=== PATIENT | male | born 1960 | race Caucasian/White ===

== ENCOUNTER → 2018-10-03 10:48 | Outpatient (CLI) | payer MEDICARE, SELFPAY ==
[2017-07-07 08:23] VITALS: BMI 70.4
[2018-10-03 12:48] LABS: Hemoglobin A1c 7.5 % (4.2-6.3)
[2018-10-03 14:30] LABS: Anion Gap 8 (5-15); BUN 12 mg/dL (7-18); BUN/Creat Ratio 16.4 RATIO (10-20); Calcium,Total 8.6 mg/dL (8.5-10.1); Chloride 103 mmol/L (98-107); Creatinine, Serum 0.73 mg/dL (0.70-1.30); EST Glomerular Filtration Rate 118 mL/min (>60); Est Glom Filt Rate - Afr Amer 142 mL/min (>60); Glucose 113 mg/dL (74-106); Potassium 4.2 mmol/L (3.5-5.1); Sodium Level 140 mmol/L (136-145)
== END ==
PROVIDERS: Family Provider Family Medicine; PCP Family Medicine; Visit Provider Family Medicine
DX: I10 Essential (primary) hypertension (principal); E11.9 Type 2 diabetes mellitus without complications
CPT/HCPCS: 36415; 80048; 83036

== ENCOUNTER → 2019-04-03 10:50 | Outpatient (CLI) | payer MEDICARE, SELFPAY ==
[2017-07-07 08:23] VITALS: BMI 70.4
[2019-04-03 13:16] LABS: AST(SGOT) 23 U/L (15-37); Alanine Aminotransfer ALT/SGPT 28 U/L (16-61); Albumin, Serum 3.8 g/dL (3.2-5.0); Alkaline Phosphatase 50 U/L (45-117); Anion Gap 7 (5-15); BUN 16 mg/dL (7-18); BUN/Creat Ratio 16.6 RATIO (10-20); Bilirubin, Direct 0.11 mg/dL (0.00-0.30); Calcium,Total 9.2 mg/dL (8.5-10.1); Chloride 103 mmol/L (98-107); Cholesterol 112 mg/dL (200); Creatinine, Serum 0.96 mg/dL (0.70-1.30); EST Glomerular Filtration Rate 86 mL/min (>60); Est Glom Filt Rate - Afr Amer 103 mL/min (>60); Globulin 3.6 g/dL (2.2-4.2); Glucose 155 mg/dL (74-106); High Density Lipoprotein 46 mg/dL; Potassium 4.6 mmol/L (3.5-5.1); Protein, Total 7.4 g/dL (6.4-8.2); Sodium Level 139 mmol/L (136-145); Triglycerides 128 mg/dL; Very Low Density Lipoprotein 26 mg/dL (5-40)
== END ==
PROVIDERS: Family Provider Family Medicine; PCP Family Medicine; Referring Provider Family Medicine; Visit Provider Family Medicine
DX: I10 Essential (primary) hypertension (principal); E11.9 Type 2 diabetes mellitus without complications
CPT/HCPCS: 36415; 80048; 80061; 80076

== ENCOUNTER → 2019-10-07 10:40 | Outpatient (CLI) | payer MEDICARE, SELFPAY ==
[2017-07-07 08:23] VITALS: BMI 70.4
[2019-10-07 13:12] LABS: Anion Gap 3 (5-15); BUN 12 mg/dL (7-18); BUN/Creat Ratio 12.3 RATIO (10-20); Calcium,Total 8.8 mg/dL (8.5-10.1); Chloride 105 mmol/L (98-107); Creatinine, Serum 0.98 mg/dL (0.70-1.30); EST Glomerular Filtration Rate 84 mL/min (>60); Est Glom Filt Rate - Afr Amer 101 mL/min (>60); Glucose 188 mg/dL (74-106); Potassium 4.9 mmol/L (3.5-5.1); Sodium Level 140 mmol/L (136-145)
== END ==
PROVIDERS: Family Provider Family Medicine; PCP Family Medicine; Visit Provider Family Medicine
DX: I10 Essential (primary) hypertension (principal)
CPT/HCPCS: 36415; 80048

== ENCOUNTER → 2020-04-06 10:35 | Outpatient (CLI) | payer MEDICARE, SELFPAY ==
[2017-07-07 08:23] VITALS: BMI 70.4
[2020-04-06 13:49] LABS: Anion Gap 6 (5-15); BUN 18 mg/dL (7-18); BUN/Creat Ratio 21.3 RATIO (10-20); Calcium,Total 8.7 mg/dL (8.5-10.1); Chloride 101 mmol/L (98-107); Creatinine, Serum 0.84 mg/dL (0.70-1.30); EST Glomerular Filtration Rate 99 mL/min (>60); Est Glom Filt Rate - Afr Amer 120 mL/min (>60); Glucose 195 mg/dL (74-106); Potassium 4.7 mmol/L (3.5-5.1); Sodium Level 137 mmol/L (136-145)
== END ==
PROVIDERS: PCP Family Medicine; Visit Provider Family Medicine
DX: I10 Essential (primary) hypertension (principal)
CPT/HCPCS: 36415; 80048

== ENCOUNTER → 2020-10-30 14:32 | Outpatient (CLI) | payer MEDICARE, SELFPAY ==
[2017-07-07 08:23] VITALS: BMI 70.4
[2020-10-30 17:39] LABS: Absolute Lymphocyte Count 1.97 X10^3/uL (0.83-4.51); Absolute Neutrophil Count 3.7 X10^3/uL (2.0-7.7); Basophil# 0.03 X10^3/uL; Basophil% 0.5 % (0-1); Eosinophil# 0.08 X10^3/uL; Eosinophils% 1.3 % (0-5); Hematocrit 50.6 % (40-54); Hemoglobin 15.9 g/dL (13.0-16.5); Lymphocyte # 1.97 X10^3/ul (4.0); Lymphocyte % 31.3 % (19-41); Mean Corp Hgb Conc 31.4 g/dL (32-36); Mean Corpuscular Hgb 28.9 pg (27.0-32.0); Mean Corpuscular Volume 91.8 fL (80-94); Mean Platelet Vol. 10.7 fl (6.2-12.0); Monocyte% 7.9 % (0-10); NRBC Flagged by Analyzer 0 % (0-5); Neutrophil % 58.7 % (47-70); Platelet Count 149 K/mm3 (150-450); RBC Distribution Width CV 12.8 % (11.6-14.6); RBC Distribution Width SD 43.5 fl (35.1-43.9); Red Blood Count 5.51 M/mm3 (4.6-6.2); White Blood Count 6.3 K/mm3 (4.4-11.0)
[2020-10-30 17:57] LABS: ALB/GLOB Ratio 0.9 RATIO (0.9-2.4); AST(SGOT) 26 U/L (15-37); Alanine Aminotransfer ALT/SGPT 27 U/L (16-61); Albumin, Serum 3.8 g/dL (3.2-5.0); Alkaline Phosphatase 44 U/L (45-117); Anion Gap 7 (5-15); BUN 13 mg/dL (7-18); BUN/Creat Ratio 13.3 RATIO (10-20); Calcium,Total 9.8 mg/dL (8.5-10.1); Chloride 101 mmol/L (98-107); Cholesterol 131 mg/dL (200); Creatinine, Serum 0.98 mg/dL (0.70-1.30); EST Glomerular Filtration Rate 84 mL/min (>60); Est Glom Filt Rate - Afr Amer 101 mL/min (>60); Globulin 4.4 g/dL (2.2-4.2); Glucose 173 mg/dL (74-106); High Density Lipoprotein 47 mg/dL; PSA,Total - Annual Screen 0.55 ng/mL (0.00-4.00); Potassium 4.7 mmol/L (3.5-5.1); Protein, Total 8.2 g/dL (6.4-8.2); Sodium Level 136 mmol/L (136-145); Triglycerides 209 mg/dL; Very Low Density Lipoprotein 42 mg/dL (5-40)
[2020-10-30 18:14] LABS: Hemoglobin A1c 9.1 % (3.8-5.6)
== END ==
PROVIDERS: PCP Family Medicine; Referring Provider Family Medicine; Visit Provider Registered Nurse
DX: E11.9 Type 2 diabetes mellitus without complications (principal); I10 Essential (primary) hypertension; Z12.5 Encounter for screening for malignant neoplasm of prostate
CPT/HCPCS: 36415; 80053; 80061; 83036; 84153; 85025; G0103

== ENCOUNTER → 2021-04-29 10:47 | Outpatient (CLI) | payer MEDICARE, SELFPAY ==
[2021-04-29 12:39] LABS: Microalbumin,Random Urine 14.7 mg/L (NO RANGE EST.); Microalbumin:Creatinine Ratio 27.6 mg/g CRE (<30 mg/g CRE)
== END ==
PROVIDERS: PCP Family Medicine; Referring Provider Family Medicine; Visit Provider Family Medicine
DX: E11.9 Type 2 diabetes mellitus without complications (principal)
CPT/HCPCS: 82043; 82570

== ENCOUNTER 2021-11-01 11:20 | Outpatient (CLI) | payer MEDICARE, SELFPAY ==
[2021-11-01 13:08] LABS: AST(SGOT) 21 U/L (15-37); Alanine Aminotransfer ALT/SGPT 31 U/L (16-61); Albumin, Serum 3.7 g/dL (3.2-5.0); Alkaline Phosphatase 54 U/L (45-117); Anion Gap 7 (5-15); BUN 10 mg/dL (7-18); BUN/Creat Ratio 12.7 RATIO (10-20); Bilirubin, Direct 0.14 mg/dL (0.00-0.30); Calcium,Total 9.5 mg/dL (8.5-10.1); Chloride 103 mmol/L (98-107); Cholesterol 106 mg/dL (200); Creatinine, Serum 0.78 mg/dL (0.70-1.30); EST Glomerular Filtration Rate 107 mL/min (>60); Est Glom Filt Rate - Afr Amer 130 mL/min (>60); Globulin 4.7 g/dL (2.2-4.2); Glucose 124 mg/dL (74-106); High Density Lipoprotein 43 mg/dL; PSA,Total - Annual Screen 0.81 ng/mL (0.00-4.00); Potassium 4.3 mmol/L (3.5-5.1); Protein, Total 8.4 g/dL (6.4-8.2); Sodium Level 137 mmol/L (136-145); Triglycerides 138 mg/dL; Very Low Density Lipoprotein 28 mg/dL (5-40)
[2021-11-01 16:14] LABS: Microalbumin,Random Urine 7.4 mg/L (NO RANGE EST.); Microalbumin:Creatinine Ratio 12.4 mg/g CRE (<30 mg/g CRE)
== END 2021-11-01 23:59 | disposition short-term general hospital (02) ==
LOC: MFPLAB 11:21
PROVIDERS: PCP Family Medicine; Visit Provider Family Medicine
DX: Z00.00 Encounter for general adult medical examination without abnormal findings (principal); E11.9 Type 2 diabetes mellitus without complications
CPT/HCPCS: 36415; 80048; 80061; 80076; 82043; 82570; 84153; G0103

== ENCOUNTER → 2022-10-26 | Outpatient (CLI) | payer MEDICARE, SELFPAY ==
[2022-10-26 12:56] LABS: AST(SGOT) 21 U/L (15-37); Alanine Aminotransfer ALT/SGPT 24 U/L (16-61); Albumin, Serum 4.1 g/dL (3.2-5.0); Alkaline Phosphatase 48 U/L (45-117); Anion Gap 7 (5-15); BUN 12 mg/dL (7-18); BUN/Creat Ratio 15.5 RATIO (10-20); Bilirubin, Direct 0.18 mg/dL (0.00-0.30); Calcium,Total 9.6 mg/dL (8.5-10.1); Chloride 105 mmol/L (98-107); Cholesterol 113 mg/dL (200); Creatinine, Serum 0.78 mg/dL (0.70-1.30); EST Glomerular Filtration Rate 108 mL/min (>60); Est Glom Filt Rate - Afr Amer 131 mL/min (>60); Globulin 3.7 g/dL (2.2-4.2); Glucose 122 mg/dL (74-106); High Density Lipoprotein 41 mg/dL; Potassium 4.6 mmol/L (3.5-5.1); Protein, Total 7.8 g/dL (6.4-8.2); Sodium Level 141 mmol/L (136-145); Triglycerides 156 mg/dL; Very Low Density Lipoprotein 31 mg/dL (5-40)
== END | disposition home or self-care (01) ==
LOC: MFPLAB 10:45
PROVIDERS: PCP Family Medicine; Referring Provider Family Medicine; Visit Provider Family Medicine
DX: E11.9 Type 2 diabetes mellitus without complications (principal)
CPT/HCPCS: 36415; 80048; 80061; 80076

== ENCOUNTER → 2023-04-25 | Outpatient (CLI) | payer MEDICARE, SELFPAY ==
[2023-04-25 13:12] LABS: PSA,Total - Annual Screen 0.65 ng/mL (0.00-4.00)
== END | disposition home or self-care (01) ==
PROVIDERS: PCP Family Medicine; Referring Provider Family Medicine; Visit Provider Family Medicine
DX: Z12.5 Encounter for screening for malignant neoplasm of prostate (principal)
CPT/HCPCS: 36415; 84153; G0103

== ENCOUNTER → 2023-10-23 | Outpatient (CLI) | payer MEDICARE, SELFPAY ==
[2023-10-23 12:17] LABS: Absolute Lymphocyte Count 1.72 X10^3/uL (0.83-4.51); Absolute Neutrophil Count 3.4 X10^3/uL (2.0-7.7); Basophil# 0.04 X10^3/uL; Basophil% 0.7 % (0-1); Eosinophil# 0.07 X10^3/uL; Eosinophils% 1.2 % (0-5); Hematocrit 51.3 % (40-54); Hemoglobin 16.5 g/dL (13.0-16.5); Lymphocyte # 1.72 X10^3/ul (0.83-4.51); Lymphocyte % 30.2 % (19-41); Mean Corp Hgb Conc 32.2 g/dL (32-36); Mean Corpuscular Hgb 29.6 pg (27.0-32.0); Mean Corpuscular Volume 92.1 fL (80-94); Mean Platelet Vol. 10.4 fl (6.2-12.0); Monocyte# 0.48 X10^3/uL; Monocyte% 8.4 % (0-10); NRBC Flagged by Analyzer 0 % (0-5); Neutrophil # 3.37 X10^3/uL (2.7-7.7); Neutrophil % 59.1 % (47-70); Platelet Count 128 K/mm3 (150-450); RBC Distribution Width CV 13.1 % (11.6-14.6); RBC Distribution Width SD 43.8 fl (35.1-43.9); Red Blood Count 5.57 M/mm3 (4.6-6.2); White Blood Count 5.7 K/mm3 (4.4-11.0)
[2023-10-23 13:09] LABS: AST(SGOT) 20 U/L (15-37); Alanine Aminotransfer ALT/SGPT 21 U/L (16-61); Albumin, Serum 3.7 g/dL (3.2-5.0); Alkaline Phosphatase 46 U/L (45-117); Anion Gap 6 (5-15); BUN 13 mg/dL (7-18); BUN/Creat Ratio 16.8 RATIO (10-20); Bilirubin, Direct 0.14 mg/dL (0.00-0.30); Calcium,Total 9.5 mg/dL (8.5-10.1); Chloride 105 mmol/L (98-107); Cholesterol 106 mg/dL (200); Creatinine, Serum 0.77 mg/dL (0.70-1.30); EST Glomerular Filtration Rate 108 mL/min (>60); Est Glom Filt Rate - Afr Amer 131 mL/min (>60); Globulin 4.1 g/dL (2.2-4.2); Glucose 141 mg/dL (74-106); High Density Lipoprotein 41 mg/dL; Potassium 4.2 mmol/L (3.5-5.1); Protein, Total 7.8 g/dL (6.4-8.2); Sodium Level 138 mmol/L (136-145); Triglycerides 181 mg/dL; Very Low Density Lipoprotein 36 mg/dL (5-40)
[2023-10-23 13:38] LABS: Hemoglobin A1c 7.3 % (3.8-5.6)
== END | disposition home or self-care (01) ==
LOC: MFPLAB 10:24
PROVIDERS: PCP Family Medicine; Visit Provider Family Medicine
DX: F32.A Depression, unspecified (principal); E11.9 Type 2 diabetes mellitus without complications
CPT/HCPCS: 36415; 80048; 80061; 80076; 83036; 85025

== ENCOUNTER 2023-12-10 13:07 | Inpatient (IN) | payer MEDICARE, SELFPAY ==
[2023-12-10] VITALS (15 sets, daily range): BP systolic 79–143; BP diastolic 50–122; PULSE 77–107; RESP 15–23; TEMP 36.6–37.1; O2SAT 88–94; BMI 58.3; BMI 57.6
--- NOTE | 2023-12-10 13:16 | RAD_ITS ---
INDICATION: sob EXAMINATION/TECHNIQUE: X-RAY - XR Chest 1 View COMPARISON: No relevant prior comparison study available FINDINGS: LINES/DEVICES: None. LUNGS: Patchy infiltrates in the right upper and lower lung zones concerning for pneumonia. No evidence of pleural effusions. MEDIASTINUM AND CARDIOVASCULAR STRUCTURES: Cardiac silhouette not enlarged. Central airways and mediastinal contour are unremarkable. BONES AND SOFT TISSUES: Unremarkable. RAD/Chest 1 View (Portable) IMPRESSION: Right lung infiltrates concerning for pneumonia. Electronically Signed: Stanley Arauz MD at 14:04 EDT ,
--- NOTE | 2023-12-10 13:16 | EKG12_ITS ---
Test Reason : SOB/WEAKNESS Blood Pressure : / mmHG Vent. Rate : 102 BPM Atrial Rate : 102 BPM P-R Int : 232 ms QRS Dur : 088 ms QT Int : 332 ms P-R-T Axes : 026 -06 049 degrees QTc Int : 432 ms Sinus tachycardia with 1st degree A-V block Otherwise normal ECG Confirmed by Antwan Floyd ([id number]), editorial specialist JIE ECHOLS ([id number]) on 12/12/2023 7:14:36 AM Referred By: Confirmed By:Antwan Floyd
--- NOTE | 2023-12-10 13:17 | EX.ED.DYSGE1 ---
HPI History of Present Illness Chief Complaint: General Illness Informant: patient Narrative Narrative: Patient presents with a 3-day history of cough, congestion, shortness of breath, nausea, diarrhea. He states he has no appetite to eat. He denies having a fever. He does feel short of breath but denies any chronic lung conditions such as COPD or asthma. [facility] Medical History (Updated 12/10/23 @ 14:[address] Maru Mancia MD) Depression Diabetes 1.5, managed as type 2 Hypertension Home Medications fluoxetine 40 mg capsule 40 mg PO DAILY 03/11/15 [History Last Taken 08/11/15 06:00] metformin 1,000 mg tablet 1,000 mg PO BID 03/11/15 [History Last Taken 03/10/15] lisinopril 20 mg tablet 20 mg PO DAILY ##30 03/13/15 [Rx Last Taken 08/11/15 06:00] aspirin 81 mg chewable tablet 81 mg PO DAILY@0800 07/07/17 [History Last Taken Unknown] atorvastatin 20 mg tablet 20 mg PO QHS 12/10/23 [History Last Taken Unknown] ertugliflozin 5 mg tablet (Steglatro) 5 mg PO DAILY 12/10/23 [History Last Taken Unknown] Allergy/AdvReac Type Severity Reaction Status Date / Time No Known Allergies Allergy Verified 12/10/23 13:08 Social History Smoking Status: Former smoker ROS ROS ED Constitutional Constitutional ED: Denies chills or fever(s) Eyes Eyes: Denies discharge from eye(s) ENT ENT ED: Denies discharge from eye(s), rhinorrhea or sore throat Cardiovascular Cardiovascular: Denies chest pain or palpitations Respiratory/Chest Respiratory/Chest: Reports cough and dyspnea Gastrointestinal Gastrointestinal: Reports diarrhea and nausea; Denies abdominal pain or vomiting Genitourinary Genitourinary ED: Denies dysuria Musculoskeletal Musculoskeletal: Reports myalgias; Denies back pain or extremity pain Integumentary Denies Abrasions or rash Neurologic Neurologic: Reports weakness; Denies headache(s) Allergic/Immunologic Allergic/Immunologic ED: Denies lip swelling or urticaria EXAM Physical Exam Const Vital Signs: 12/10/23 13:08 12/10/23 13:16 12/10/23 13:39 Temperature 98 F Temperature Source Temporal Pulse Rate 107 H 97 Respiratory Rate 22 H 22 H Respiratory Pattern Tachypnea Blood Pressure 131/60 H 98/55 L Blood Pressure Mean 83 69 Pulse Ox 93 90 Oxygen Delivery Method Room Air Room Air 12/10/23 14:17 Temperature Temperature Source Pulse Rate 96 Respiratory Rate 16 Respiratory Pattern Blood Pressure 88/54 L Blood Pressure Mean 65 Pulse Ox 88 Oxygen Delivery Method Room Air Positive obese Nutritional Appearance: obese HEENT Reports moist mucous membranes Eyes EOMs intact bilaterally Chest Wall inspection of chest normal and palpation of chest normal Resp normal respiratory effort Resp Narrative: Diminished breath sounds bilateral bases. Cardio regular rate and regular rhythm GI GI Narrative: Abdomen soft, obese, nontender. Hypoactive but present bowel sounds noted. Neuro oriented x3 Neuro Narrative: No focal neurologic deficit. Psych mental status grossly normal MDM MDM MDM Narrative Medical decision making narrative: Patient was on court recording monitor. EKG obtained to evaluate for cardiac arrhythmia/ischemia. Chest x-ray obtained to evaluate for acute lung pathology, cardiac size, or mediastinal abnormality. IV line established. Patient given IV fluids along with Zofran. Labwork obtained to evaluate for leukocytosis, anemia, and electrolyte derangement. Swab for COVID, influenza, and RSV will be obtained. History & Record Review Discussion w/independent historian: Patient and Family Lab Data Attestation: I reviewed the patient's lab results. Labs: Laboratory Results - last 24 hr 12/10/23 12/10/23 13:25 13:59 WBC 15.7 H RBC 5.20 Hgb 15.5 Hct 47.5 MCV 91.3 MCH 29.8 MCHC 32.6 RDW Std Deviation 45.0 H RDW Coeff of Opal 13.2 Plt Count 107 L MPV 10.6 Immature Gran % (Auto) 0.600 Neut % (Auto) 81.1 H Lymph % (Auto) 6.5 L Milam % (Auto) 9.9 Eos % (Auto) 1.4 Baso % (Auto) 0.5 Absolute Neuts (auto) 12.8 H Absolute Lymphs (auto) 1.02 Nucleated RBC % 0 Platelet Estimate ADEQUATE RBC Morphology N CYTIC Sodium 130 L Potassium 4.1 Chloride 93 L Carbon Dioxide 20.0 L Anion Gap 17 H BUN 21 H Creatinine 1.28 Est GFR (MDRD) Af Amer 73 Est GFR (MDRD) Non-Af 60 BUN/Creatinine Ratio 16.4 Glucose 203 H Lactic Acid 3.6 H* Calcium 8.9 Total Bilirubin 0.90 Direct Bilirubin 0.32 H AST 30 ALT 28 Alkaline Phosphatase 57 Total Protein 8.2 Albumin 3.1 L Globulin 5.1 H Radiography Chest X-Ray - ED: 1 View, Read by ED Physician and Right Infiltrate Diagnostic Testing: Clinical Impression(s) from Imaging Studies Chest X-Ray 12/10/23 13:16 IMPRESSION: Right lung infiltrates concerning for pneumonia. Electronically Signed: Stanley Arauz MD at 14:04 EDT , EKG Initial EKG: Attestation: I personally reviewed and interpreted this EKG as follows: Interpretation: Sinus Tachycardia (Sinus tach at 102 with no acute ischemia.) Treatment and Re-Evaluation :: CBC was a white count of 15.7 with 81% neutrophils. Hemoglobin is 15.5. Chemistry studies reveal slightly low sodium at 130 with a bicarb of 20. His anion gap is 17. BUN is 21. Glucose is 203. LFTs are unremarkable. EKG is sinus tachycardia at 102 with no acute ischemia. Portable chest x-ray per my interpretation reveals large right-sided infiltrate. Blood cultures were obtained and patient started on Rocephin and Zithromax. Lactic acid has been ordered. Patient's swab for COVID and RSV is negative. He does test positive for influenza A. He will be given a dose of Tamiflu also. I will speak with hospitalist regarding admission. When I am in the room patient's O2 sat is 89% on room air with a good waveform. states yesterday she was measuring his oxygen levels and they were down to 86% at times. He is placed on 2 L nasal cannula. Addendum: Patient's lactic acid does return elevated at 3.6. I did give him an additional 1 L IV fluid bolus. 30 mg/kg bolus for him would indicate need for 5 L of IV fluid. I do not feel that this is in best interest. I do believe his lactic acid is elevated because of hypoxia that he has been dealing with for the past several days. Discharge Plan Dx/Rx/DC Orders Clinical Impression: Influenza A, Pneumonia Disposition Disposition: Acute Care Hospital [facility]
[2023-12-10] MEDS: Ondansetron 4 MG/2 ML Vial IV (13:25)
[2023-12-10] MEDS: 0.9% Normal Saline (1000mL) 1,000 ML 150 ML IV ×2 (13:26→20:40)
[2023-12-10 13:33] LABS: Absolute Lymphocyte Count 1.02 X10^3/uL (0.83-4.51); Absolute Neutrophil Count 12.8 X10^3/uL (2.0-7.7); Basophil# 0.08 X10^3/uL; Basophil% 0.5 % (0-1); Eosinophil# 0.22 X10^3/uL; Eosinophils% 1.4 % (0-5); Hematocrit 47.5 % (40-54); Hemoglobin 15.5 g/dL (13.0-16.5); Lymphocyte # 1.02 X10^3/ul (0.83-4.51); Lymphocyte % 6.5 % (19-41); Mean Corp Hgb Conc 32.6 g/dL (32-36); Mean Corpuscular Hgb 29.8 pg (27.0-32.0); Mean Corpuscular Volume 91.3 fL (80-94); Mean Platelet Vol. 10.6 fl (6.2-12.0); Monocyte# 1.55 X10^3/uL; Monocyte% 9.9 % (0-10); NRBC Flagged by Analyzer 0 % (0-5); Neutrophil # 12.77 X10^3/uL (2.7-7.7); Neutrophil % 81.1 % (47-70); POSITIVE DIFFERENTIAL YES; POSITIVE MORPHOLOGY YES; Platelet Count 107 K/mm3 (150-450); RBC Distribution Width CV 13.2 % (11.6-14.6); White Blood Count 15.7 K/mm3 (4.4-11.0)
[2023-12-10 13:34] LABS: Differential Indicated SCAN CRITERIA MET
[2023-12-10 13:46] LABS: Platelet Estimate ADEQUATE (ADEQ); Red Cell Morphology N CYTIC NORMAL (NORM C&C)
[2023-12-10 13:49] LABS: AST(SGOT) 30 U/L (15-37); Alanine Aminotransfer ALT/SGPT 28 U/L (16-61); Albumin, Serum 3.1 g/dL (3.2-5.0); Alkaline Phosphatase 57 U/L (45-117); Anion Gap 17 (5-15); BUN 21 mg/dL (7-18); BUN/Creat Ratio 16.4 RATIO (10-20); Bilirubin, Direct 0.32 mg/dL (0.00-0.30); Calcium,Total 8.9 mg/dL (8.5-10.1); Chloride 93 mmol/L (98-107); Creatinine, Serum 1.28 mg/dL (0.70-1.30); EST Glomerular Filtration Rate 60 mL/min (>60); Est Glom Filt Rate - Afr Amer 73 mL/min (>60); Globulin 5.1 g/dL (2.2-4.2); Glucose 203 mg/dL (74-106); Potassium 4.1 mmol/L (3.5-5.1); Protein, Total 8.2 g/dL (6.4-8.2); Sodium Level 130 mmol/L (136-145)
--- OUTSIDE RECORDS SUMMARY | 2023-12-10 14:03 | XMS RPT_ITS | CCD ---
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 Name Role Phone Kaur SPARKS, Stephan Urrutia [phone] Medications Completed/Discontinued Medications Medication Drug Class(es) Dates Sig (Normalized) Sig (Original) ACETAMINOPHEN TABS (2 sources) Start: 12-19-2011 End: 04-02-2015 take 3 tablets by mouth once daily TYLENOL EXTRA STRENGTH TABS Three tablets by mouth daily ACETAMINOPHEN TABS [id number] Shefali Quinn Problems Active Problems Problem Classification Problem Date Documented Da te Episodic/Chronic Chronic ulcer of skin (1 source) Chronic ulcer of lower extremity; Translations: [Non-pressure chronic ulcer of unspecified part of left lower leg with fat layer exposed] Onset: 01-27-2016 01-27-2016 Chronic Other nutritional; endocrine; and metabolic disorders (1 source) Morbid obesity; Translations: [Morbid (severe) obesity due to excess calories] Onset: 06-22-2015 07-10-2015 Chronic Spondylosis; intervertebral disc disorders; other back problems (1 source) Arthritis of spine; Translations: [Unspecified inflammatory spondylopathy, lumbar region] Onset: 12-19-2011 12-19-2011 Chronic Past or Other Problems Problem Classification Problem Date Documented Date Episodic/Chronic Bacterial infection; unspecified site (1 source) Methicillin resistant Staphylococcus aureus infection; Translations: [Methicillin resistant Staphylococcus aureus infection, unspecified site] Onset: 01-29-2016 02-02-2016 Episodic Biliary tract disease (1 source) Biliary calculus; Translations: [Calculus of gallbladder without cholecystitis without obstruction] Onset: 07-11-2017 07-11-2017 Episodic Complications of surgical procedures or medical care (1 source) Disruption of external operation (surgical) wound, not elsewhere classified, subsequent encounter; Translations: [Disruption of external operation (surgical) wound, not elsewhere classified, subsequent encounter] Onset: 09-07-2015 10-20-2015 Episodic Neoplasms of unspecified nature or uncertain behavior (1 source) Neoplasm of unspecified behavior of bone, soft tissue, and skin; Translations: [Neoplasm of unspecified behavior of bone, soft tissue, and skin] Onset: 06-22-2015 07-01-2015 Episodic Other aftercare (1 source) Surgical follow-up; Translations: [Encounter for other specified surgical aftercare] Onset: 08-11-2015 09-20-2015 Episodic Other skin disorders (1 source) Disorder of skin; Translations: [Other specified disorders of the skin and subcutaneous tissue] Onset: 08-19-2015 09-20-2015 Episodic Screening and history of mental health and substance abuse codes (1 source) Ex-smoker; Translations: [Personal history of nicotine dependence] Onset: 06-22-2015 07-10-2015 Episodic Skin and subcutaneous tissue infections (1 source) Abscess of skin AND/OR subcutaneous tissue; Translations: [Cutaneous abscess, unspecified] Onset: 04-27-2015 04-27-2015 Episodic Spondylosis; intervertebral disc disorders; other back problems (1 source) Low back pain; Translations: [Low back pain] Onset: 12-19-2011 12-19-2011 Episodic Results Test Name Value Interpretation Reference Range Facil ity Vital Signs Date Time Vital Sign Value Performing Clinician Facility 07-11-2017 13:32-0400 BMI (Body Mass Index) 64.34 kg/m2 Stephan Dietrich MD [facility] Work Phone: 07-11-2017 13:32-0400 Body Temperature 97.7 [degF] Stephan Dietrich MD [facility] Work Phone: 07-11-2017 13:32-0400 BP Diastolic 63 mm[Hg] Stephan Dietrich MD [facility] [employer] Work Phone: 07-11-2017 13:32-0400 BP Systolic 108 mm[Hg] Stephan Dietrich MD [facility] [employer] Work Phone: 07-11-2017 13:32-0400 Height 172.72 cm Stephan Dietrich MD [facility] [employer] Work Phone: 07-11-2017 13:32-0400 Pulse (Heart Rate) 76 /min Stephan Dietrich MD [facility] [employer] Work Phone: 07-11-2017 13:32-0400 Respiratory Rate 20 /min Stephan Dietrich MD [facility] [employer] Work Phone: 07-11-2017 13:32-0400 Weight 191.96 kg Stephan Dietrich MD [facility] [employer] Work Phone: 03-24-2016 09:59-0400 BSA (Body Surface Area) 2.88 m2 Stephan Dietrich MD [facility] [employer] Work Phone: 03-24-2016 09:59-0400 Height 172.72 cm Stephan Dietrich MD [facility] [employer] Work Phone: Procedures Date Procedure Procedure Detail Performing Clinician Start: 02-10-2016 End: 03-29-2016 Follow Up Appt 2 weeks Thony Flores MD Start: 01-27-2016 End: 01-29-2016 Bacteria identified in Wound by Culture Thony Flores MD Start: 01-27-2016 End: 02-02-2016 Follow Up Appt 2 weeks Thony Flores MD Start: 12-16-2015 End: 02-02-2016 Follow Up Appt Other Thony Flores MD Start: 12-02-2015 End: 02-02-2016 Follow Up Appt 2 weeks Thony Flores MD Start: 10-28-2015 End: 02-02-2016 Follow Up Appt 2 weeks Thony Flores MD Start: 10-14-2015 End: 01-29-2016 Follow Up Appt 2 weeks Thony Flores MD Start: 09-30-2015 End: 01-29-2016 Follow Up Appt 2 weeks Thony Flores MD Start: 09-16-2015 End: 01-29-2016 Follow Up Appt 2 weeks Thony Flores MD Start: 09-07-2015 End: 01-29-2016 Follow Up Appt Other Thony Flores MD Start: 09-04-2015 End: 01-29-2016 Follow Up Appt Other Thony Flores MD Start: 09-04-2015 End: 09-04-2015 Primary Care Physician Thony Flores MD Start: 08-19-2015 End: 01-29-2016 Follow Up Appt 2 weeks Thony Flores MD Start: 06-22-2015 End: 08-12-2015 Follow Up Appt Other Thony Flores MD Start: 04-27-2015 End: 04-28-2015 Documentation of current medications Vanesa Olivares MD Plan of Treatment Date Care Activity Detail Author Start: 07-11-2017 End: 07-11-2017 Follow-up visit Follow Up as needed [facility] [employer] Work Phone: Start: 07-11-2017 End: 07-11-2017 Appointment Appointment [facility] Work Phone: Start: 03-24-2016 End: 05-13-2016 Follow Up Appt Other Follow Up Appt Other [facility] [employer] Work Phone: Start: 02-24-2016 End: 05-13-2016 Follow up Appt 3 weeks Follow up Appt 3 weeks [facility] Work Phone: Start: 02-10-2016 End: 03-29-2016 Follow Up Appt 2 weeks Follow Up Appt 2 weeks [facility] [employer] Work Phone: Start: 01-27-2016 End: 01-29-2016 Bacteria identified Cx Nom (Wound) *CUW - Culture, Wound (Aerobic) [facility] [employer] Work Phone: Start: 01-27-2016 End: 02-02-2016 Follow Up Appt 2 weeks Follow Up Appt 2 weeks [facility] Work Phone: Start: 12-16-2015 End: 02-02-2016 Follow Up Appt Other Follow Up Appt Other [facility] Work Phone: Start: 12-16-2015 End: 03-28-2016 Primary Care Physician Primary Care Physician Cesia Parker, [facility], [address] [place] [address], [facility]. [address] [place], [address] [facility] Work Phone: Start: 12-02-2015 End: 02-02-2016 Follow Up Appt 2 weeks Follow Up Appt 2 weeks [facility] Work Phone: Start: 10-28-2015 End: 02-02-2016 Follow Up Appt 2 weeks Follow Up Appt 2 weeks [facility] Work Phone: Start: 10-14-2015 End: 01-29-2016 Follow Up Appt 2 weeks Follow Up Appt 2 weeks [facility] Work Phone: Start: 09-30-2015 End: 01-29-2016 Follow Up Appt 2 weeks Follow Up Appt 2 weeks [facility] Work Phone: Start: 09-16-2015 End: 01-29-2016 Follow Up Appt 2 weeks Follow Up Appt 2 weeks [facility] Work Phone: Start: 09-07-2015 End: 01-29-2016 Follow Up Appt Other Follow Up Appt Other [facility] Work Phone: Start: 09-04-2015 End: 01-29-2016 Follow Up Appt Other Follow Up Appt Other [facility] Work Phone: Start: 09-04-2015 End: 09-04-2015 Primary Care Physician Primary Care Physician Cesia Parker, [facility], [address] [place] [address], [facility]. [address] [place], [address] [facility] Work Phone: Start: 08-19-2015 End: 01-29-2016 Follow Up Appt 2 weeks Follow Up Appt 2 weeks [facility] Work Phone: Start: 06-22-2015 End: 08-12-2015 Follow Up Appt Other Follow Up Appt Other [facility] [employer] Work Phone: Start: 04-27-2015 End: 04-27-2015 Bacteria identified Cx Nom (Wound) *Culture and Sensitivity, wound [facility] Work Phone: Patient Education Medications [facility] Work Phone: Medical Equipment Procedure Code Equipment Code Equipment Original Text Equi pment Identifier Dates 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 This clinical summary was aggregated from multiple sources. Caution should be exercised in using it in the provision of clinical care. This summary normalizes information from multiple sources, and as a consequence, information in this document may materially change the coding, format and clinical context of patient data. In addition, data may be omitted in some cases. CLINICAL DECISIONS SHOULD BE BASED ON THE PRIMARY CLINICAL RECORDS. [facility] [employer] [facility]. provides no warranty or guarantee of the accuracy or completeness of information in this document.
[2023-12-10] MEDS: Ceftriaxone 1 GM/50 ML BAG IV (14:16)
[2023-12-10] MEDS: 0.9% Normal Saline (1000mL) 1,000 ML 999 ML IV ×2 (14:16→16:32)
--- NOTE | 2023-12-10 14:22 | PCM.HP.STD ---
HPI - General General Date of Admission: 12/10/23 Date of Service: 12/10/23 Chief Complaint: Shortness of breath HPI Narrative GORDON CANTRELL, is a 63 M with past medical history of type 2 diabetes, depression, hypertension, obesity who presents to the ED with 3 days history of cough, worsening shortness of breath with diarrhea. No fever, nausea, vomiting. No prior history of chronic lung disease. Her presentation in the ED he was found to have saturation is 86% and was started on 2 L of oxygen. Over the past 3 days he is only drank water and has significant anorexia. His COVID and RSV swabs are negative but is tested positive for influenza A and is started on Rocephin. Chest x-ray suggestive of right-sided consolidation more in the right upper lobes [facility] Medical History (Updated 12/10/23 @ 14:[address] Maru Mancia MD) Depression Diabetes 1.5, managed as type 2 Hypertension Home Medications fluoxetine 40 mg capsule 40 mg PO DAILY 03/11/15 [History Last Taken 08/11/15 06:00] metformin 1,000 mg tablet 1,000 mg PO BID 03/11/15 [History Last Taken 03/10/15] lisinopril 20 mg tablet 20 mg PO DAILY ##30 03/13/15 [Rx Last Taken 08/11/15 06:00] aspirin 81 mg chewable tablet 81 mg PO DAILY@0800 07/07/17 [History Last Taken Unknown] atorvastatin 20 mg tablet 20 mg PO QHS 12/10/23 [History Last Taken Unknown] ertugliflozin 5 mg tablet (Steglatro) 5 mg PO DAILY 12/10/23 [History Last Taken Unknown] Allergy/AdvReac Type Severity Reaction Status Date / Time No Known Allergies Allergy Verified 12/10/23 13:08 Social History Smoking Status: Former smoker ROS Review of Systems ROS Unobtainable: Denies due to encephalopathy, due to endotracheal tube, due to mental condition, due to mental status or other Constitutional Constitutional: Reports anorexia, malaise and weakness Eyes Eyes: Denies blurry vision, change in eye color, change in vision, discharge from eye(s), double vision, erythema, eye pain, loss of vision or other ENT HEENT: Denies abnormal hearing, dysphagia, ear pain, epistaxis, headache(s), hearing loss, nasal congestion, nasal discharge, post nasal drip, sinus pressure, sore throat or other Cardiovascular Cardiovascular: Denies chest pain, claudication, dyspnea on exertion, edema, lightheadedness, orthopnea, palpitations, paroxysmal nocturnal dyspnea, rapid heart rate, syncope or other Respiratory/Chest Respiratory/Chest: Reports cough, dyspnea and productive cough Gastrointestinal Gastrointestinal: Denies abdominal pain, coffee ground emesis, constipation, diarrhea, dyspepsia, hematemesis, hematochezia, loose stools, melena, nausea, vomiting or other Genitourinary Genitourinary: Denies burning urination, difficulty urinating, dysuria, hematuria, nocturia, urinary frequency, urinary hesitancy, urinary incontinence, urinary urgency or other Psychiatric Psychiatric: Denies anxiety, depression, homicidal ideation, suicidal ideation or other Endocrine Endocrinology: Denies change in body appearance, cold intolerance, excessive sweating, heat intolerance, polydipsia, polyuria or other Hematologic/Lymphatic Hematologic/Lymphatic: Denies anemia, easy bleeding, easy bruising, lymphadenopathy or other Allergic/Immunologic Allergic/Immunologic: Denies rhinitis, hives, eczemia, asthma or other Vital Signs Vital Signs Vital Signs: 12/10/23 13:08 12/10/23 13:16 12/10/23 13:39 Temperature 98 F Temperature Source Temporal Pulse Rate 107 H 97 Respiratory Rate 22 H 22 H Respiratory Pattern Tachypnea Blood Pressure 131/60 H 98/55 L Blood Pressure Mean 83 69 Pulse Ox 93 90 Oxygen Delivery Method Room Air Room Air 12/10/23 14:17 Temperature Temperature Source Pulse Rate 96 Respiratory Rate 16 Respiratory Pattern Blood Pressure 88/54 L Blood Pressure Mean 65 Pulse Ox 88 Oxygen Delivery Method Room Air Physical Exam Const alert and oriented x3 HEENT normocephalic Eyes PERRL Neck no lymphadenopathy Resp normal respiratory effort Cardio regular rate and regular rhythm GI normal to inspection, nondistended, normoactive bowel sounds Extremity normal to inspection Neuro oriented x3 and CN's II-XII intact bilaterally Results Medical Records Data Attestation: I reviewed the patient's medical records Lab / Micro Data Attestation: I reviewed the patient's lab results. Lab results narrative: WBC 15.7, platelet 127, sodium 130, BUN 21. 12/10/23 13:25 12/10/23 13:25 Labs: Laboratory Results - last 24 hr 12/10/23 13:25: WBC 15.7 H, RBC 5.20, Hgb 15.5, Hct 47.5, MCV 91.3, MCH 29.8, MCHC 32.6, RDW Std Deviation 45.0 H, RDW Coeff of Opal 13.2, Plt Count 107 L, MPV 10.6, Immature Gran % (Auto) 0.600, Neut % (Auto) 81.1 H, Lymph % (Auto) 6.5 L, [place] % (Auto) 9.9, Eos % (Auto) 1.4, Baso % (Auto) 0.5, Absolute Neuts (auto) 12.8 H, Absolute Lymphs (auto) 1.02, Nucleated RBC % 0, Platelet Estimate ADEQUATE, RBC Morphology N CYTIC, Sodium 130 L, Potassium 4.1, Chloride 93 L, Carbon Dioxide 20.0 L, Anion Gap 17 H, BUN 21 H, Creatinine 1.28, Est GFR (MDRD) Af Amer 73, Est GFR (MDRD) Non-Af 60, BUN/Creatinine Ratio 16.4, Glucose 203 H, Calcium 8.9, Total Bilirubin 0.90, Direct Bilirubin 0.32 H, AST 30, ALT 28, Alkaline Phosphatase 57, Total Protein 8.2, Albumin 3.1 L, Globulin 5.1 H Micro: Microbiology 12/10/23 13:22 Mucosa - Nose SARS-CoV-2, Influenza & RSV (PCR) - Final Influenzae A Imaging Radiology Impression Chest X-Ray 12/10/23 13:16 IMPRESSION: Right lung infiltrates concerning for pneumonia. Electronically Signed: Stanley Arauz MD at 14:04 EDT , Assessment & Plan Assessment/Plan (1) Pneumonia: PLAN: Plan 63-year-old man comes to the ED with concerns of acute onset cough, shortness of breath and diarrhea with x-ray suggestive of right-sided infiltrative pneumonia and swab positive for influenza A. He is being admitted for his new onset oxygen requirement and borderline hypotension in the ED. 1. Community-acquired pneumonia: Likely differentials are influenza pneumonia, there is a possibility of superadded bacterial infection given the worsening saturation but there is no. Of improvement after the initial episode. -Supplemental oxygen via nasal cannula to maintain saturation 88 to 92% -Will start therapy with azathioprine plus ceftriaxone for community-acquired pneumonia -Got 1 dose of Tamiflu in the ED, will hold off for now as the symptoms started 3 days back -Close monitoring of vitals, encourage p.o. nutrition, 1L LR at the rate of 100 cc/h given the hypotension 2. Type 2 diabetes: -A1c levels -Insulin as per sliding scale 3. Obesity: No history of CHUY or obesity hypoventilation, does not use CPAP. Would benefit from evaluation as outpatient with sleep study 4. Hypertension: Will hold medication for now as he is hypotensive in the ED 5. Mood disorder: Continue fluoxetine 6. DVT prophylaxis: Enoxaparin Charges/Coding Visit Charges Inpatient E&M: 03075 Init Hosp L2
[2023-12-10] MEDS: Oseltamivir Phosphate 75 MG Capsule PO (14:24)
--- NOTE | 2023-12-10 14:25 | NURSING ---
HOSPITALIST FOR DR TARIQ
--- OUTSIDE RECORDS SUMMARY | 2023-12-10 14:38 | XMS RPT_ITS | CCD ---
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 Field Name Role Phone Kaur SPARKS, Stephan Urrutia [phone] Medications Completed/Discontinued Medications Medication Drug Class(es) Dates Sig (Normalized) Sig (Original) ACETAMINOPHEN TABS (2 sources) Start: 12-19-2011 End: 04-02-2015 take 3 tablets by mouth once daily TYLENOL EXTRA STRENGTH TABS Three tablets by mouth daily ACETAMINOPHEN TABS [id number] Shefali Quinn Problems Active Problems Problem Classification [...] Mass Index) 64.34 kg/m2 Stephan Dietrich MD [facility] Work Phone: 07-11-2017 13:32-0400 Body Temperature 97.7 [degF] Stephan Dietrich MD [facility] [employer] Work Phone: 07-11-2017 13:32-0400 BP Diastolic 63 mm[Hg] Stephan Dietrich MD [facility] [employer] Work Phone: 07-11-2017 13:32-0400 BP Systolic 108 mm[Hg] Stephan Dietrich MD [facility] [employer] Work Phone: 07-11-2017 13:32-0400 Height 172.72 cm Stephan Dietrich MD [facility] [employer] Work Phone: 07-11-2017 13:32-0400 Pulse (Heart Rate) 76 /min Stephan Dietrich MD [facility] [employer] Work Phone: 07-11-2017 13:32-0400 Respiratory Rate 20 /min Stephan Dietrich MD [facility] [employer] Work Phone: 07-11-2017 13:32-0400 Weight 191.96 kg Stephan Dietrich MD [facility] [employer] Work Phone: 03-24-2016 09:59-0400 BSA (Body Surface Area) 2.88 m2 Stephan Dietrich MD [facility] [employer] Work Phone: 03-24-2016 09:59-0400 Height 172.72 cm Stephan Dietrich MD [facility] [employer] Work Phone: Procedures Date Procedure Procedure Detail [...] 07-11-2017 Follow-up visit Follow Up as needed [facility] [employer] Work Phone: Start: 07-11-2017 End: 07-11-2017 Appointment Appointment [facility] [employer] Work Phone: Start: 03-24-2016 End: 05-13-2016 Follow Up Appt Other Follow Up Appt Other [facility] [employer] Work Phone: Start: 02-24-2016 End: 05-13-2016 Follow up Appt 3 weeks Follow up Appt 3 weeks [facility] [employer] Work Phone: Start: 02-10-2016 End: 03-29-2016 Follow Up Appt 2 weeks Follow Up Appt 2 weeks [facility] [employer] Work Phone: Start: 01-27-2016 End: 01-29-2016 Bacteria identified Cx Nom (Wound) *CUW - Culture, Wound (Aerobic) [facility] [employer] Work Phone: Start: 01-27-2016 End: 02-02-2016 Follow Up Appt 2 weeks Follow Up Appt 2 weeks [facility] Work Phone: Start: 12-16-2015 End: 02-02-2016 Follow Up Appt Other Follow Up Appt Other [facility] Work Phone: Start: 12-16-2015 End: 03-28-2016 Primary Care Physician Primary Care Physician Cesia Parker, [facility], [address] [place] [address], [facility] [place], [address] [facility] Work Phone: Start: 12-02-2015 End: 02-02-2016 Follow Up Appt 2 weeks Follow Up Appt 2 weeks [facility] Work Phone: Start: 10-28-2015 End: 02-02-2016 Follow Up Appt 2 weeks Follow Up Appt 2 weeks [facility] Work Phone: Start: 10-14-2015 End: 01-29-2016 Follow Up Appt 2 weeks Follow Up Appt 2 weeks [facility] Work Phone: Start: 09-30-2015 End: 01-29-2016 Follow Up Appt 2 weeks Follow Up Appt 2 weeks [facility] Work Phone: Start: 09-16-2015 End: 01-29-2016 Follow Up Appt 2 weeks Follow Up Appt 2 weeks [facility] Work Phone: Start: 09-07-2015 End: 01-29-2016 Follow Up Appt Other Follow Up Appt Other [facility] Work Phone: Start: 09-04-2015 End: 01-29-2016 Follow Up Appt Other Follow Up Appt Other [facility] Work Phone: Start: 09-04-2015 End: 09-04-2015 Primary Care Physician Primary Care Physician Cesia Parker, [facility], [address] [place] [address], [facility]. [address], [place], [address] [facility] Work Phone: Start: 08-19-2015 End: 01-29-2016 Follow Up Appt 2 weeks Follow Up Appt 2 weeks [facility] Work Phone: Start: 06-22-2015 End: 08-12-2015 Follow Up Appt Other Follow Up Appt Other [facility] [employer] Work Phone: Start: 04-27-2015 End: 04-27-2015 Bacteria identified Cx Nom (Wound) *Culture and Sensitivity, wound [facility] Work Phone: Patient Education Medications [facility] Work Phone: Medical Equipment [...] BE BASED ON THE PRIMARY CLINICAL RECORDS. [facility] [employer] [facility]. provides no warranty or guarantee of the accuracy or completeness of information in this document.
--- NOTE | 2023-12-10 14:41 | NURSING ---
MED SURG GRIFFITHS FLU A, PNEUMONIA
[2023-12-10 14:42] LABS: Lactic Acid 3.6 mmol/L (0.4-1.9)
[2023-12-10] MEDS: Azithromycin 500 MG in Dextrose 5%-Water (250mL Bag) 250 ML 250 MG IV (14:50)
--- OUTSIDE RECORDS SUMMARY | 2023-12-10 14:53 | XMS RPT_ITS | CCD ---
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 Name Role Phone Kaur SPARKS, Stephan Urrutia [phone] Medications Completed/Discontinued Medications Medication Drug Class(es) Dates Sig (Normalized) Sig (Original) ACETAMINOPHEN TABS (2 sources) Start: 12-19-2011 End: 04-02-2015 take 3 tablets by mouth once daily TYLENOL EXTRA STRENGTH TABS Three tablets by mouth daily ACETAMINOPHEN TABS [id number] Shefali Quinn Problems Active Problems Problem Classification [...] Mass Index) 64.34 kg/m2 Stephan Dietrich MD [facility] Work Phone: 07-11-2017 13:32-0400 Body Temperature 97.7 [degF] Stephan Dietrich MD [facility] [employer] Work Phone: 07-11-2017 13:32-0400 BP Diastolic 63 mm[Hg] Stephan Dietrich MD [facility] [employer] Work Phone: 07-11-2017 13:32-0400 BP Systolic 108 mm[Hg] Stephan Dietrich MD [facility] [employer] Work Phone: 07-11-2017 13:32-0400 Height 172.72 cm Stephan Dietrich MD [facility] [employer] Work Phone: 07-11-2017 13:32-0400 Pulse (Heart Rate) 76 /min Stephan Dietrich MD [facility] [employer] Work Phone: 07-11-2017 13:32-0400 Respiratory Rate 20 /min Stephan Dietrich MD [facility] [employer] Work Phone: 07-11-2017 13:32-0400 Weight 191.96 kg Stephan Dietrich MD [facility] [employer] Work Phone: 03-24-2016 09:59-0400 BSA (Body Surface Area) 2.88 m2 Stephan Dietrich MD [facility] [employer] Work Phone: 03-24-2016 09:59-0400 Height 172.72 cm Stephan Dietrich MD [facility] [employer] Work Phone: Procedures Date Procedure Procedure Detail [...] 07-11-2017 Follow-up visit Follow Up as needed [facility] [employer] Work Phone: Start: 07-11-2017 End: 07-11-2017 Appointment Appointment [facility] [employer] Work Phone: Start: 03-24-2016 End: 05-13-2016 Follow Up Appt Other Follow Up Appt Other [facility] [employer] Work Phone: Start: 02-24-2016 End: 05-13-2016 Follow up Appt 3 weeks Follow up Appt 3 weeks [facility] [employer] Work Phone: Start: 02-10-2016 End: 03-29-2016 Follow Up Appt 2 weeks Follow Up Appt 2 weeks [facility] [employer] Work Phone: Start: 01-27-2016 End: 01-29-2016 Bacteria identified Cx Nom (Wound) *CUW - Culture, Wound (Aerobic) [facility] [employer] Work Phone: Start: 01-27-2016 End: 02-02-2016 Follow Up Appt 2 weeks Follow Up Appt 2 weeks [facility] Work Phone: Start: 12-16-2015 End: 02-02-2016 Follow Up Appt Other Follow Up Appt Other [facility] Work Phone: Start: 12-16-2015 End: 03-28-2016 Primary Care Physician Primary Care Physician Cesia Parker, [facility], [address] [place] [address], [facility] [[email or web address] [address], [place], [address] [facility] Work Phone: Start: 12-02-2015 End: 02-02-2016 Follow Up Appt 2 weeks Follow Up Appt 2 weeks [facility] Work Phone: Start: 10-28-2015 End: 02-02-2016 Follow Up Appt 2 weeks Follow Up Appt 2 weeks [facility] Work Phone: Start: 10-14-2015 End: 01-29-2016 Follow Up Appt 2 weeks Follow Up Appt 2 weeks [facility] Work Phone: Start: 09-30-2015 End: 01-29-2016 Follow Up Appt 2 weeks Follow Up Appt 2 weeks [facility] Work Phone: Start: 09-16-2015 End: 01-29-2016 Follow Up Appt 2 weeks Follow Up Appt 2 weeks [facility] Work Phone: Start: 09-07-2015 End: 01-29-2016 Follow Up Appt Other Follow Up Appt Other [facility] Work Phone: Start: 09-04-2015 End: 01-29-2016 Follow Up Appt Other Follow Up Appt Other [facility] Work Phone: Start: 09-04-2015 End: 09-04-2015 Primary Care Physician Primary Care Physician Cesia Parker, [facility], [address] [place] [address], [facility] [[email or web address] [address], [place], [address] [facility] Work Phone: Start: 08-19-2015 End: 01-29-2016 Follow Up Appt 2 weeks Follow Up Appt 2 weeks [facility] Work Phone: Start: 06-22-2015 End: 08-12-2015 Follow Up Appt Other Follow Up Appt Other [facility] [employer] Work Phone: Start: 04-27-2015 End: 04-27-2015 Bacteria identified Cx Nom (Wound) *Culture and Sensitivity, wound [facility] Work Phone: Patient Education Medications [facility] Work Phone: Medical [...] BE BASED ON THE PRIMARY CLINICAL RECORDS. [facility] [employer] [facility]. provides no warranty or guarantee of the accuracy or completeness of information in this document.
[2023-12-10 18:08] LABS: Reflex Lactate? Y
[2023-12-10 19:26] LABS: Lactic Acid 2.8 mmol/L (0.4-1.9)
[2023-12-10] MEDS: Atorvastatin Calcium 20 MG Tablet PO (21:52)
[2023-12-10] MEDS: metFORMIN HCl 1,000 MG Tablet 1000 MG PO (21:52)
[2023-12-10] MEDS: Enoxaparin 40 MG/0.4 ML Syringe SC (21:53)
[2023-12-10] MEDS: Aspirin 81 MG TAB.CHEW PO (21:55)
[2023-12-10 22:17] LABS: Bedside Glucose 234 mg/dL (74-106)
[2023-12-11] VITALS (8 sets, daily range): BP systolic 105–135; BP diastolic 61–81; PULSE 77–90; RESP 15–20; TEMP 36.7–37; O2SAT 87–96
[2023-12-11] MEDS: 0.9% Normal Saline (1000mL) 1,000 ML 150 ML IV ×2 (03:30→09:19)
[2023-12-11] MEDS: Acetaminophen 325 MG Tablet 650 MG PO (06:56)
[2023-12-11 07:02] LABS: Bedside Glucose 136 mg/dL (74-106)
[2023-12-11 07:33] LABS: Absolute Lymphocyte Count 1.27 X10^3/uL (0.83-4.51); Absolute Neutrophil Count 11.1 X10^3/uL (2.0-7.7); Basophil# 0.08 X10^3/uL; Basophil% 0.6 % (0-1); Eosinophil# 0.12 X10^3/uL; Eosinophils% 0.8 % (0-5); Hematocrit 39.6 % (40-54); Hemoglobin 12.9 g/dL (13.0-16.5); Lymphocyte # 1.27 X10^3/ul (0.83-4.51); Lymphocyte % 8.9 % (19-41); Mean Corp Hgb Conc 32.6 g/dL (32-36); Mean Corpuscular Hgb 29.6 pg (27.0-32.0); Mean Corpuscular Volume 90.8 fL (80-94); Mean Platelet Vol. 10.4 fl (6.2-12.0); Monocyte# 1.51 X10^3/uL; Monocyte% 10.6 % (0-10); NRBC Flagged by Analyzer 0 % (0-5); Neutrophil # 11.12 X10^3/uL (2.7-7.7); Neutrophil % 78.3 % (47-70); POSITIVE DIFFERENTIAL YES; POSITIVE MORPHOLOGY YES; Platelet Count 101 K/mm3 (150-450); RBC Distribution Width CV 13.3 % (11.6-14.6); RBC Distribution Width SD 44.7 fl (35.1-43.9); Red Blood Count 4.36 M/mm3 (4.6-6.2); White Blood Count 14.2 K/mm3 (4.4-11.0)
[2023-12-11 07:35] LABS: Differential Indicated SCAN CRITERIA MET
[2023-12-11 07:44] LABS: International Normalized Ratio 1.3; Prothrombin Time (Protime)PT. 16.4 SECONDS (11.7-14.9)
[2023-12-11 07:58] LABS: ALB/GLOB Ratio 0.5 RATIO (0.9-2.4); AST(SGOT) 49 U/L (15-37); Alanine Aminotransfer ALT/SGPT 25 U/L (16-61); Albumin, Serum 2.4 g/dL (3.2-5.0); Alkaline Phosphatase 50 U/L (45-117); Anion Gap 7 (5-15); BUN 24 mg/dL (7-18); BUN/Creat Ratio 28.5 RATIO (10-20); Calcium,Total 7.9 mg/dL (8.5-10.1); Chloride 103 mmol/L (98-107); Creatinine, Serum 0.84 mg/dL (0.70-1.30); EST Glomerular Filtration Rate 98 mL/min (>60); Est Glom Filt Rate - Afr Amer 119 mL/min (>60); Estimated Creatinine Clearance 137.26 ml/min; Globulin 4.4 g/dL (2.2-4.2); Glucose 130 mg/dL (74-106); Magnesium 1.8 mg/dL (1.6-2.6); Phosphorus 1.8 mg/dL (2.5-4.9); Potassium 3.9 mmol/L (3.5-5.1); Protein, Total 6.8 g/dL (6.4-8.2); Sodium Level 135 mmol/L (136-145); Thyroid Stim Hormone (TSH) 0.45 uIU/mL (0.358-3.74)
[2023-12-11 08:01] LABS: Differential Comment SCANNED
[2023-12-11] MEDS: Empagliflozin 10 MG Tablet PO (08:57)
[2023-12-11] MEDS: Enoxaparin 40 MG/0.4 ML Syringe SC ×2 (08:57→21:20)
[2023-12-11] MEDS: Glucerna Shake 120 ML LIQUID PO (09:00)
[2023-12-11] MEDS: Ceftriaxone 2 GM in 0.9% Normal Saline (50mL MB+) 50 ML IV (09:18)
--- NOTE | 2023-12-11 09:33 | PCM.PN.HOSP ---
Reason for Visit Reason for Visit: Cough/congestion/shortness of breath Subjective Subjective Mr. Light is a 63-year-old white male who presented to the emergency department at [facility] on 12/10/2023 for 3-day history of cough, congestion, shortness of breath, nausea, and diarrhea. Patient reported he had no appetite and has not been eating well. He denied a fever but does have a history of COPD. Vital signs on presentation showed a temperature of 98 degrees, heart rate was 107, respiratory rate was 22, blood pressure was 131/16 oxygen saturation was 90 to 93% on room air. Oxygen saturation eventually dropped to 88% on room air. His CBC on presentation showed a leukocytosis with a white count of 15.7 and a thrombocytopenia with a platelet count of 107,000. His thrombocytopenia is chronic. He had a left shift with an 81.1% neutrophilia. His chemistry panel showed hyponatremia with a sodium of 130, bicarb of 20, and a gap of 17 and a BUN of 21 with a creatinine of 1.28 which is above his baseline of 0.7-0.8. His blood glucose was 208 and his initial lactate was 3.6. Follow-up lactate had improved to 2.8. His rapid flu was positive for flu A. Chest x-ray showed a right lung infiltrate that was concerning for pneumonia. He was admitted to the medical floor and placed on supplemental oxygen at 2 L for hypoxia with oxygen saturation of 88% and started on CAP coverage. Patient states overall he is about 80% better than when he arrived. He was able to produce a sputum culture and it is currently waiting to be sent to the lab. No current complaints and currently is face timing with his granddaughter. Objective Data Objective Data Vital Signs: Vital Signs Temp Pulse Resp BP Pulse Ox O2 Del Method O2 Flow Rate 98.6 F 86 18 105/63 90 Nasal Cannula 2 12/11/23 07:48 12/11/23 07:48 12/11/23 07:48 12/11/23 07:48 12/11/23 07:48 12/11/23 07:48 12/11/23 07:48 Oxygen Flow Rate (L/min) 2 Oxygen Delivery Method Nasal Cannula Weight: 166.922 kg Body Mass Index (BMI) 57.6 Intake & Output: Intake and Output for Last 24 Hours 12/09/23 12/10/23 12/11/23 22:59 23:59 23:59 Intake Total 1872.5 / 1872.5 Balance 1872.5 / 1872.5 Lab / Micro Data 12/11/23 07:20 12/11/23 07:20 Labs: Laboratory Results - last 24 hr 12/10/23 13:25: WBC 15.7 H, RBC 5.20, Hgb 15.5, Hct 47.5, MCV 91.3, MCH 29.8, MCHC 32.6, RDW Std Deviation 45.0 H, RDW Coeff of Opal 13.2, Plt Count 107 L, MPV 10.6, Immature Gran % (Auto) 0.600, Neut % (Auto) 81.1 H, Lymph % (Auto) 6.5 L, [place] % (Auto) 9.9, Eos % (Auto) 1.4, Baso % (Auto) 0.5, Absolute Neuts (auto) 12.8 H, Absolute Lymphs (auto) 1.02, Nucleated RBC % 0, Diff Path Review January, Platelet Estimate ADEQUATE, RBC Morphology N CYTIC, Sodium 130 L, Potassium 4.1, Chloride 93 L, Carbon Dioxide 20.0 L, Anion Gap 17 H, BUN 21 H, Creatinine 1.28, Est GFR (MDRD) Af Amer 73, Est GFR (MDRD) Non-Af 60, BUN/Creatinine Ratio 16.4, Glucose 203 H, Calcium 8.9, Total Bilirubin 0.90, Direct Bilirubin 0.32 H, AST 30, ALT 28, Alkaline Phosphatase 57, Total Protein 8.2, Albumin 3.1 L, Globulin 5.1 H 12/10/23 13:59: Lactic Acid 3.6 H* 12/10/23 18:35: Lactic Acid 2.8 H* 12/10/23 21:49: POC Glucose 234 H 12/11/23 06:41: POC Glucose 136 H 12/11/23 07:20: WBC 14.2 H, RBC 4.36 L, Hgb 12.9 L, Hct 39.6 L, MCV 90.8, MCH 29.6, MCHC 32.6, RDW Std Deviation 44.7 H, RDW Coeff of Opal 13.3, Plt Count 101 L, MPV 10.4, Immature Gran % (Auto) 0.800, Neut % (Auto) 78.3 H, Lymph % (Auto) 8.9 L, [place] % (Auto) 10.6 H, Eos % (Auto) 0.8, Baso % (Auto) 0.6, Absolute Neuts (auto) 11.1 H, Absolute Lymphs (auto) 1.27, Nucleated RBC % 0, Differential Comment SCANNED, Diff Path Review January foll, PT 16.4 H, INR 1.3, Sodium 135 L, Potassium 3.9, Chloride 103, Carbon Dioxide 25.0, Anion Gap 7, BUN 24 H, Creatinine 0.84, Estim Creat Clear Calc 137.26, Est GFR (MDRD) Af Amer 119, Est GFR (MDRD) Non-Af 98, BUN/Creatinine Ratio 28.5 H, Glucose 130 H, Calcium 7.9 L, Phosphorus 1.8 L, Magnesium 1.8, Total Bilirubin 0.50, Direct Bilirubin 0.20, AST 49 H, ALT 25, Alkaline Phosphatase 50, Total Protein 6.8, Albumin 2.4 L, Globulin 4.4 H, Albumin/Globulin Ratio 0.5 L, TSH 0.45 Micro: Microbiology 12/10/23 13:22 Mucosa - Nose SARS-CoV-2, Influenza & RSV (PCR) - Final Influenzae A Radiography Diagnostic Testing: Radiology Impression Chest X-Ray 12/10/23 13:16 IMPRESSION: Right lung infiltrates concerning for pneumonia. Electronically Signed: Stanley Arauz MD at 14:04 EDT , Physical Exam Const alert, oriented x3, no apparent distress and well nourished; Negative for average body habitus Constitutional Narrative: Morbidly obese, white male, sitting up on the edge of the bed, family at bedside, patient face timing with his granddaughter. Appears comfortable and nontoxic HEENT head/scalp atraumatic and moist oral mucous membranes HEENT Narrative: Mallampati 3-4, no thrush Resp normal respiratory effort, no retractions, no use of accessory muscles and clear to auscultation bilaterally Resp Narrative: No adventitious sounds but breath sounds are distant likely related to body habitus Auscultation: Negative for rales, rhonchi or wheezes Cardio regular rate, regular rhythm, S1 normal heart sound, S2 normal heart sound, no murmurs, no rub, no gallops and no clicks Cardio Narrative: Distant secondary to body habitus GI normal to inspection, nondistended, normoactive bowel sounds, soft to palpation and non-tender GI Narrative: Large protuberant abdomen Extremity no clubbing, cyanosis or edema Extremity Narrative: 2+ pedal pulses Neuro oriented x3, moves all extremities and no focal motor deficits Speech: speech normal Psych affect normal Psych Narrative: Very pleasant, interacts appropriately Assessment & Plan Assessment/Plan (1) Pneumonia: (2) Influenza A: (3) Obesity, morbid, BMI 50 or higher: (4) High anion gap metabolic acidosis: (5) Hyponatremia: (6) Lactic acidosis: (7) Hypoxia: PLAN: Plan Acute hypoxia secondary to influenza A/suspected community-acquired pneumonia -Blood cultures were obtained prior to admission -Add on sputum culture if able to produce -Check strep pneumo and Legionella antigens -Rapid flu a was positive -Continue azithromycin and ceftriaxone and narrow as able -Add Mucinex twice daily -Add I-S -Add Acapella 10 times every 2 hours while awake -Patient is currently on 2 L supplemental oxygen -Wean as able -Will need ambulatory pulse ox prior to discharge -Patient is out of the window for Tamiflu as he was 3 days symptomatic at presentation High anion gap metabolic acidosis -Resolved today -Suspect partially related to lactic acidosis however overall etiology is unclear Lactic acidosis -Resolved Hyponatremia -130 on presentation -Resolving and currently 135 -Patient did appear slightly dehydrated so may have been related to hypovolemia hyponatremia however I suspect his lung pathology on presentation likely contributed as well Elevated serum creatinine -BUN was 21 and serum creatinine is 1.28 on presentation -Baseline serum creatinine appears to run between 0.7 and 0.8 -Improved today -Continue to monitor Hypertension -Continue home lisinopril Hyperlipidemia -Continue home atorvastatin DM-2 -Will hold home metformin for now -Continue home SLGP2 inhibitor -SSI -Cardiac/carb controlled diet -Accu-Cheks as ordered Depression -Continue home fluoxetine Morbid obesity -BMI is 57.6 -Recommend weight loss -Complicates treatment, prognosis, outcomes History of tobacco abuse -Recommend ongoing cessation DVT prophylaxis -Continue enoxaparin twice daily CODE STATUS -Full code is verified on admission Charges/Coding Visit Charges Inpatient E&M: 88258 Subs Hosp L2
--- NOTE | 2023-12-11 09:40 | CASEMGMT ---
INOCENTE GRAHAM Assessment: Face to Face with pt for initial transition planning/care coordination assessment. INOCENTE GRAHAM introduced self and role at [facility], pt voices understanding and consents to assessment. Pt is A&O x4 and answers all questions appropriately at this time. Pt sitting up in bed with oxygen on in no distress. Care providers, pharmacy, and demographics verified/updated. Admitting Dx: community acquired pneumonia PCP:Keith Specialists:Denies Preferred Pharmacy:[facility] Insurance: [facility] Prescription Benefit: yes LNOK: Amanda Light, ; Sera Hahnp, dtr Living Arrangements: Pt lives with in a single story home with 2 steps to enter. Pt reports he is I in ADL's and denies concerns at home. Transportation: Pt drives self and denies concerns with transportation. DME:pox, cane-doesn't use. Pt states he does not have a BGM and does not check his blood sugar. He states his PCP is aware of this and agrees he does not need to. HHC/SNF: Denies hx of Pt states no concerns with going home at time of dc. Discussed local in network DME companies should pt require oxygen upon dc. Pt chooses [employer]. Discussed homegoing oxygen instructions. Pt verbalized understanding. Pt states no further concerns/needs. CM to follow. Advised pt to ask CM if any further question/concerns/needs arise, voices understanding. Pt Goal: Home Plan: Home, follow for oxygen Gayla BROWER CM
[2023-12-11] MEDS: Azithromycin 500 MG in Dextrose 5%-Water (250mL Bag) 250 ML 250 MG IV (10:24)
[2023-12-11] MEDS: guaiFENesin 1,200 MG Tablet 1200 MG PO ×2 (11:07→21:21)
[2023-12-11 11:59] LABS: Bedside Glucose 185 mg/dL (74-106)
[2023-12-11] MEDS: Ipratropium/Albuterol Sulfate 3 ML AMPUL.NEB INHALATION ×2 (12:56→19:35)
[2023-12-11] MEDS: Insulin Lispro 100 UNIT/ML INSULN.PEN SC (13:08)
[2023-12-11 16:31] LABS: Bedside Glucose 108 mg/dL (74-106)
[2023-12-11] MEDS: Atorvastatin Calcium 20 MG Tablet PO (21:21)
[2023-12-11 21:41] LABS: Bedside Glucose 104 mg/dL (74-106)
[2023-12-12] MEDS: Acetaminophen 325 MG Tablet 650 MG PO (01:09)
[2023-12-12 02:15] VITALS: BP 115/79; PULSE 79; RESP 18; TEMP 36.6; O2SAT 97
[2023-12-12 06:40] LABS: Absolute Lymphocyte Count 1.22 X10^3/uL (0.83-4.51); Absolute Neutrophil Count 8.6 X10^3/uL (2.0-7.7); Basophil# 0.07 X10^3/uL; Basophil% 0.6 % (0-1); Eosinophil# 0.02 X10^3/uL; Eosinophils% 0.2 % (0-5); Hematocrit 40.8 % (40-54); Hemoglobin 13.1 g/dL (13.0-16.5); Lymphocyte # 1.22 X10^3/ul (0.83-4.51); Lymphocyte % 11.1 % (19-41); Mean Corp Hgb Conc 32.1 g/dL (32-36); Mean Corpuscular Hgb 29.7 pg (27.0-32.0); Mean Corpuscular Volume 92.5 fL (80-94); Mean Platelet Vol. 10.5 fl (6.2-12.0); Monocyte# 0.95 X10^3/uL; Monocyte% 8.6 % (0-10); NRBC Flagged by Analyzer 0 % (0-5); Neutrophil # 8.55 X10^3/uL (2.7-7.7); Neutrophil % 77.9 % (47-70); Platelet Count 124 K/mm3 (150-450); RBC Distribution Width CV 13.3 % (11.6-14.6); RBC Distribution Width SD 45.8 fl (35.1-43.9); Red Blood Count 4.41 M/mm3 (4.6-6.2)
[2023-12-12 06:48] LABS: Bedside Glucose 102 mg/dL (74-106)
[2023-12-12] MEDS: Ipratropium/Albuterol Sulfate 3 ML AMPUL.NEB INHALATION ×2 (06:50→13:30)
[2023-12-12 06:51] VITALS: PULSE 70; RESP 20; O2SAT 94
[2023-12-12 07:47] LABS: Anion Gap 5 (5-15); BUN 13 mg/dL (7-18); BUN/Creat Ratio 23.2 RATIO (10-20); Calcium,Total 8.7 mg/dL (8.5-10.1); Chloride 105 mmol/L (98-107); Creatinine, Serum 0.56 mg/dL (0.70-1.30); EST Glomerular Filtration Rate 157 mL/min (>60); Est Glom Filt Rate - Afr Amer 189 mL/min (>60); Estimated Creatinine Clearance 205.89 ml/min; Glucose 102 mg/dL (74-106); Phosphorus 2.5 mg/dL (2.5-4.9); Potassium 3.9 mmol/L (3.5-5.1); Sodium Level 138 mmol/L (136-145)
[2023-12-12 08:01] LABS: Pathologist Review Reviewed
[2023-12-12 08:02] LABS: Pathologist Review Reviewed
[2023-12-12 08:43] VITALS: BP 107/57; PULSE 75; RESP 18; TEMP 36.8; O2SAT 95
[2023-12-12] MEDS: guaiFENesin 1,200 MG Tablet 1200 MG PO (08:51)
[2023-12-12] MEDS: Aspirin 81 MG TAB.CHEW PO (08:51)
[2023-12-12] MEDS: Enoxaparin 40 MG/0.4 ML Syringe SC (08:51)
[2023-12-12] MEDS: Empagliflozin 10 MG Tablet PO (08:51)
[2023-12-12 08:58] VITALS: O2SAT 87; O2SAT 90; O2SAT 92
[2023-12-12] MEDS: Ceftriaxone 2 GM in 0.9% Normal Saline (50mL MB+) 50 ML IV (09:00)
[2023-12-12] MEDS: Azithromycin 500 MG in Dextrose 5%-Water (250mL Bag) 250 ML 250 MG IV (09:42)
[2023-12-12] MEDS: 0.9% Saline Lock 10 ML Syringe IV (10:46)
[2023-12-12 13:30] VITALS: PULSE 82; RESP 18
[2023-12-12 14:33] LABS: Bedside Glucose 142 mg/dL (74-106)
[2023-12-12 14:45] VITALS: BP 103/47; PULSE 84; RESP 18; TEMP 36.4; O2SAT 96
--- NOTE | 2023-12-12 15:46 | CASEMGMT ---
RN CM into pt room, pt states he walked a loop with therapy today and did well. He is aware that oxygen will be set up for him, reviewed homegoing instructions and ordered liter flow. Pt verbalizes understanding. Pt denies any further homegoing needs. Referral sent to [facility] [place] via [facility].
--- NOTE | 2023-12-12 15:48 | PCM.DC.SUM ---
Providers Date of Admission: 12/10/23 Date of Discharge: 12/12/23 Primary Care Physician: Dr. Cesia Parker MD Reason For Visit: COMMUNITY-ACQUIRED PNEUMONIA Diagnosis Discharge Diagnosis (1) Pneumonia: Status: Acute Code(s): J18.9 - Pneumonia, unspecified organism (2) Influenza A: Status: Acute Code(s): J10.1 - Influenza due to other identified influenza virus with other respiratory manifestations (3) Obesity, morbid, BMI 50 or higher: Status: Chronic Code(s): E66.01 - Morbid (severe) obesity due to excess calories (4) High anion gap metabolic acidosis: Status: Acute Code(s): E87.29 - Other acidosis (5) Hyponatremia: Status: Acute Code(s): E87.1 - Hypo-osmolality and hyponatremia (6) Lactic acidosis: Status: Acute Code(s): E87.20 - Acidosis, unspecified (7) Hypoxia: Status: Acute Code(s): R09.02 - Hypoxemia Medications at Discharge Home Medications fluoxetine 40 mg capsule 40 mg PO DAILY 03/11/15 metformin 1,000 mg tablet 1,000 mg PO BID 03/11/15 lisinopril 20 mg tablet 20 mg PO DAILY ##30 03/13/15 aspirin 81 mg chewable tablet 81 mg PO DAILY@0800 07/07/17 atorvastatin 20 mg tablet 20 mg PO QHS 12/10/23 ertugliflozin 5 mg tablet (Steglatro) 5 mg PO DAILY 12/10/23 albuterol sulfate 90 mcg/actuation aerosol inhaler 1 inh inhalation Q6H PRN shortness of breath or wheezing #6.7 grams 12/12/23 guaifenesin 1,200 mg tablet, extended release 12 hr (Mucus Relief ER) 1,200 mg PO BID #0 tabs 12/12/23 levofloxacin 750 mg tablet 750 mg PO DAILY #5 tabs 12/12/23 prednisone 10 mg tablet 10 mg PO DAILY #20 tabs 12/12/23 Hospital Course Operations None Procedures EKG and - (Chest x-ray) Summary of Care Provided Minutes Spent on Discharge: 37 Hospital Course: Mr. Light is a 63-year-old white male who presented to the emergency department at [facility] on 12/10/2023 for 3-day history of cough, congestion, shortness of breath, nausea, and diarrhea. Patient reported he had no appetite and has not been eating well. He denied a fever but does have a history of COPD. Vital signs on presentation showed a temperature of 98 degrees, heart rate was 107, respiratory rate was 22, blood pressure was 131/16 oxygen saturation was 90 to 93% on room air. Oxygen saturation eventually dropped to 88% on room air. His CBC on presentation showed a leukocytosis with a white count of 15.7 and a thrombocytopenia with a platelet count of 107,000. His thrombocytopenia is chronic. He had a left shift with an 81.1% neutrophilia. His chemistry panel showed hyponatremia with a sodium of 130, bicarb of 20, and a gap of 17 and a BUN of 21 with a creatinine of 1.28 which is above his baseline of 0.7-0.8. His blood glucose was 208 and his initial lactate was 3.6. Follow-up lactate had improved to 2.8. His rapid flu was positive for flu A. Chest x-ray showed a right lung infiltrate that was concerning for pneumonia. He was admitted to the medical floor and placed on supplemental oxygen at 2 L for hypoxia with oxygen saturation of 88% and started on CAP coverage. Strep pneumo and Legionella antigens were negative. Within 24 hours of admission he was reporting he was about 80% better. He still required some oxygen but clinically was feeling much better. By 12/12/2023 his white count had resolved and his sodium had normalized. We did have therapy get up and moving around the room and he felt good doing so. He felt he could ambulate independently and be safe at home. We did do an ambulatory pulse ox and he was stable on room air at rest with an oxygen saturation of 92% however during ambulation he desatted to 87% and required 2 L to improve his oxygenation status up to 90%. Per his report he does not move around a whole lot at home. I have recommended a follow-up as an outpatient with pulmonary medicine. I suspect he may have some underlying COPD and should have PFTs once his flu and pneumonia have improved. He also should have an outpatient sleep study as I do suspect he may have a component of obstructive sleep apnea. He was able to be discharged home on 12/12/2023. We discharged him to come pleat an antibiotic course of a total of 7 days with 5 more days of Levaquin and he was placed on a prednisone taper over the next 8 days. We also instructed him in the utilization of an albuterol inhaler in the instance that he became short of breath or had wheezing. I have asked him to follow-up with pulmonary medicine as noted above and with his primary care physician within the next week. We have asked him to isolate himself somewhat over the next 3 to 5 days since he was diagnosed with influenza. His blood cultures are pending at discharge however have no growth at 48 hours. Discharge diagnoses: Acute hypoxia Influenza A Community-acquired pneumonia High anion gap metabolic acidosis-resolved Lactic acidosis-resolved Hyponatremia-resolved Elevated serum creatinine-resolved Hypertension Hyperlipidemia DM-2 Depression Suspected COPD Morbid obesity Suspected CHUY History of tobacco abuse Physical Exam Const alert, oriented x3, no apparent distress and well nourished; Negative for average body habitus Constitutional Narrative: Morbidly obese, white male, s sitting up in bed, at bedside, Appears comfortable and nontoxic General Appearance: cooperative, comfortable, well kempt and well developed Orientation / Consciousness: awake, oriented to person, oriented to place and oriented to time Exam Limitations: no limitations Nutritional Appearance: morbidly obese HEENT normocephalic, head/scalp atraumatic and moist oral mucous membranes HEENT Narrative: Mild hearing loss, Mallampati is 4, no thrush Eyes PERRL, EOMs intact bilaterally and conjunctivae normal Neck no lymphadenopathy and supple Neck Narrative: Neck is short and thick, trachea midline, no noted thyroid enlargement or nodularity Resp normal respiratory effort, no retractions and no use of accessory muscles Resp Narrative: Scattered end expiratory wheezes with improved air movement Auscultation: wheezes; Negative for rales or rhonchi Cardio regular rate, regular rhythm, S1 normal heart sound, S2 normal heart sound, no murmurs, no rub, no gallops and no clicks Cardio Narrative: Distant secondary to body habitus GI normal to inspection, nondistended, normoactive bowel sounds, soft to palpation and non-tender GI Narrative: Large protuberant abdomen Extremity normal to inspection and no clubbing, cyanosis or edema Extremity Narrative: 2+ pedal pulses Skin no rashes or lesions noted, no wounds, skin turgor normal and no jaundice Neuro oriented x3, CN's II-XII intact bilaterally, moves all extremities and no focal motor deficits Speech: speech normal Psych affect normal Psych Narrative: Very pleasant, interacts appropriately Weight / BMI Weight Weight: 166.922 kg Body Mass Index (BMI) 57.6 ABG / Lab / Microbiology Data 12/12/23 05:41 12/12/23 05:41 Laboratory: Laboratory Results - last 24 hr 12/10/23 13:25: Diff Path Review Reviewed 12/11/23 07:20: Diff Path Review Reviewed 12/11/23 16:09: POC Glucose 108 H 12/11/23 21:19: POC Glucose 104 12/12/23 05:41: WBC 11.0, RBC 4.41 L, Hgb 13.1, Hct 40.8, MCV 92.5, MCH 29.7, MCHC 32.1, RDW Std Deviation 45.8 H, RDW Coeff of Opal 13.3, Plt Count 124 L, MPV 10.5, Immature Gran % (Auto) 1.600 H, Neut % (Auto) 77.9 H, Lymph % (Auto) 11.1 L, [place] % (Auto) 8.6, Eos % (Auto) 0.2, Baso % (Auto) 0.6, Absolute Neuts (auto) 8.6 H, Absolute Lymphs (auto) 1.22, Nucleated RBC % 0, Sodium 138, Potassium 3.9, Chloride 105, Carbon Dioxide 28.0, Anion Gap 5, BUN 13, Creatinine 0.56 L, Estim Creat Clear Calc 205.89, Est GFR (MDRD) Af Amer 189, Est GFR (MDRD) Non-Af 157, BUN/Creatinine Ratio 23.2 H, Glucose 102, Calcium 8.7, Phosphorus 2.5 12/12/23 06:28: POC Glucose 102 12/12/23 11:34: POC Glucose 142 H Microbiology: Microbiology 12/11/23 11:02 Urine, Clean Catch Legionella Antigen - Final 12/11/23 11:02 Urine, Clean Catch Streptococcus pneumoniae Antigen (M - Final 12/10/23 13:22 Mucosa - Nose SARS-CoV-2, Influenza & RSV (PCR) - Final Influenzae A D/C Instructions Discharge Diet: Low fat / Low cholesterol and 2000 Calorie Control Diet Discharge Activity: Return to Normal Activity Return to work on: 12/18/23 Meaningful Use Info Meaningful Use Diagnoses (Choose all that apply): None applicable Discharge Plan Admission Admit Date/Time: 12/10/23 14:38 Primary Reason for Your Visit: Cough/congestion/shortness of breath Attending Provider: Eve Woo Primary Care Provider: Cesia Parker Consulting Providers: Jackie Padgett Instructions Additional Instructions / Restrictions: 1. Please isolate yourself for the next 3 to 5 days due to your diagnosis of influenza A 2. Please call the pulmonary office below as soon as possible to be seen by pulmonary medicine for possible COPD and for sleep study 3. You will likely notice that your blood sugars are running higher than normal while you are on your prednisone. This should improve once her prednisone is completed. 4. Please continue using your incentive spirometer that you utilized in the hospital taking deep breaths for the next 7 to 10 days 5 times every hour while awake with slow deep breaths. Discharge Orders/Prescriptions Prescriptions: New guaifenesin [Mucus Relief ER] 1,200 mg Tablet Extended Release 12hr 1,200 mg PO BID Qty: 0 0RF levofloxacin 750 mg tablet 750 mg PO DAILY Qty: 5 0RF prednisone 10 mg tablet 10 mg PO DAILY Qty: 20 0RF Rx Instructions: 4 tablets x 2 days, 3 tablets x 2 days, 2 tablets x 2 days, 1 tablet x 2 days albuterol sulfate 90 mcg/actuation HFA aerosol inhaler 1 inh inhalation Q6H PRN (Reason: shortness of breath or wheezing) Qty: 6.7 0RF Continued fluoxetine 40 MG capsule 40 mg PO DAILY Patient Comments: ANXIETY metformin 1,000 MG tablet 1,000 mg PO BID Patient Comments: BLOOD SUGAR lisinopril 20 MG tablet 20 mg PO DAILY Qty: 30 0RF Patient Comments: blood pressure aspirin 81 MG tablet,chewable 81 mg PO DAILY@0800 atorvastatin 20 mg tablet 20 mg PO QHS Steglatro 5 mg tablet 5 mg PO DAILY Referrals / Follow Up: Cesia Parker MD [Primary Care Provider] - Within 1 Week Saúl Simmons DO [Med Staff - Active Staff] - Within 3 Months Disposition Disposition (needs filled in before D/C Order can be placed): Home, Self Care Charges/Coding Visit Charges Inpatient E&M: 78835 Disch Hosp >30min
[2023-12-12 16:44] LABS: Bedside Glucose 115 mg/dL (74-106)
== END 2023-12-12 17:29 | disposition home or self-care (01) | DRG 194 ==
LOC: ED 14:32 → MS3 14:37
PROVIDERS: Admitting Provider Internal Medicine; Emergency Provider Emergency Medicine; PCP Family Medicine; Visit Provider Internal Medicine
DX: J10.00 Influenza due to other identified influenza virus with unspecified type of pneumonia (principal); Z68.43 Body mass index [BMI] 50.0-59.9, adult; E87.20 Acidosis, unspecified; J44.0 Chronic obstructive pulmonary disease with (acute) lower respiratory infection; E87.1 Hypo-osmolality and hyponatremia; D69.6 Thrombocytopenia, unspecified; E11.9 Type 2 diabetes mellitus without complications; E66.01 Morbid (severe) obesity due to excess calories; I10 Essential (primary) hypertension; F32.A Depression, unspecified; E78.5 Hyperlipidemia, unspecified; G47.33 Obstructive sleep apnea (adult) (pediatric); Z79.82 Long term (current) use of aspirin; Z87.891 Personal history of nicotine dependence; Z79.84 Long term (current) use of oral hypoglycemic drugs; Z79.01 Long term (current) use of anticoagulants
CPT/HCPCS: 36415; 71045; 80048; 80053; 80076; 82248; 82962; 83605; 83735; 84100; 84443; 85025; 85610; 87040; 87449; 87631; 93005; 94640; 94664; 94668; 97161; 97802; 99252; 99285; J7030; A4216; G0463

== ENCOUNTER → 2024-11-05 | Outpatient (CLI) | payer MEDICARE, SELFPAY ==
[2024-11-05 13:22] LABS: PSA,Total - Annual Screen 0.72 ng/mL (0.00-4.00)
== END | disposition home or self-care (01) ==
LOC: MFPLAB 10:32
PROVIDERS: PCP Family Medicine; Referring Provider Family Medicine; Visit Provider Family Medicine
DX: Z12.5 Encounter for screening for malignant neoplasm of prostate (principal)
CPT/HCPCS: 36415; 84153; G0103

== ENCOUNTER → 2025-05-08 | Outpatient (CLI) | payer MEDICARE, SELFPAY ==
[2025-05-08 12:31] LABS: Hematocrit 51.0 % (40-54); Hemoglobin 16.4 g/dL (13.0-16.5); Immature Granulocytes Count 0.080 X10^3/uL (0.0-0.0); Mean Corp Hgb Conc 32.2 g/dL (32-36); Mean Corpuscular Volume 91.1 fL (80-94); Mean Platelet Vol. 9.8 fl (6.2-12.0); NRBC Flagged by Analyzer 0 % (0-5); Platelet Count 186 K/mm3 (150-450); RBC Distribution Width CV 13.1 % (11.6-14.6); RBC Distribution Width SD 43.5 fl (35.1-43.9); Red Blood Count 5.60 M/mm3 (4.6-6.2); White Blood Count 6.3 K/mm3 (4.4-11.0)
[2025-05-08 13:07] LABS: AST(SGOT) 20 U/L (<=37); Alanine Aminotransfer ALT/SGPT 16 U/L (<=46); Albumin, Serum 4.4 g/dL (3.4-4.8); Alkaline Phosphatase 49 U/L (40-129); Anion Gap 13 (5-15); BUN 13 mg/dL (4-19); BUN/Creat Ratio 17.2 RATIO (10-20); Calcium,Total 10.2 mg/dL (7.6-11.0); Carbon Dioxide 26.8 mmol/L (21.0-32.0); Chloride 101 mmol/L (98-108); Cholesterol 130 mg/dL (<=200); Globulin 3.6 g/dL (2.2-4.2); Glucose 150 mg/dL (70-99); Low Density Lipoprotein Calc. 49 mg/dL; Potassium 4.8 mmol/L (3.3-5.1); Triglycerides 177 mg/dL; Very Low Density Lipoprotein 35 mg/dL (5-40); cholesterol:hdl ratio screen 2.86
== END | disposition home or self-care (01) ==
LOC: MFPLAB 10:33
PROVIDERS: PCP Family Medicine; Referring Provider Family Medicine; Visit Provider Family Medicine
DX: E11.59 Type 2 diabetes mellitus with other circulatory complications (principal)
CPT/HCPCS: 36415; 80053; 80061; 83036; 85025